=== PATIENT | male | born 1935 | race Caucasian/White ===

== ENCOUNTER 2020-07-22 08:48 | Emergency (ER) | payer MEDICARE ==
[~2020-07-22] VITALS: Ht 172.7 cm; Wt 100.7 kg
[~2020-07-22 08:48] MED LIST: ALPR.25 PO; APIDRA; ASPI325EC; ASPI500; ATEN50; ESOM20 PO; FOSI10; FOSI10 PO; HYDCHL25 PO; HYDCHL50; INSU7030P; INSUL100I; INSULANI; INSULANI SC; LANS30EC; LEVSOD88 PO; LOSHYD; METF500; METF850; METF850 PO; MULVITMINF; NIFE30ER PO; OSTEO BI FLEX; OSTEO BIFLEX; POTCHL20ER; PRAV20; PRAV20 PO; PROVACHOL; RABE20; SPIR25 PO; VALD20; WARF4 PO; WARF5 PO; [UNRECOGNIZED DRUG - OTHER]
[2020-07-22] MEDS ORDERED: HUMALOG100 UNIT/1 (09:16)
[2020-07-22] MEDS ORDERED: PRAV20 PO (09:18)
[2020-07-22] MEDS ORDERED: XARELTO20 MG PO (09:18)
[2020-07-22] MEDS ORDERED: LISI20 PO (09:18)
[2020-07-22] MEDS ORDERED: SPIR25 PO (09:18)
[2020-07-22] MEDS ORDERED: FURO20 PO (09:19)
[2020-07-22] MEDS ORDERED: POTA10T PO (09:19)
[2020-07-22 09:55] LABS: BASOPHILS ABSOLUTE AUTO 0.02 K/mm3 (0.00-0.23); BASOPHILS PERCENT AUTO 0 % (0-2); EOSINOPHILS ABSOLUTE AUTO 0.03 K/mm3 (0.00-0.68); EOSINOPHILS PERCENT AUTO 1 % (0-6); Hematocrit 38.8 % (37.0-53.0); Hemoglobin 12.7 g/dL (13.5-17.5); IMMATURE GRAN ABSOLUTE AUTO 0.03 K/mm3 (0.00-0.10); IMMATURE GRAN PERCENT AUTO 1 % (0-1); LYMPHOCYTES PERCENT AUTO 27 % (21-46); MONOCYTES ABSOLUTE AUTO 0.68 K/mm3 (0.16-1.47); MONOCYTES PERCENT AUTO 15 % (4-13); Mean Corpuscular HGB Conc 32.7 g/dL (31.5-36.5); Mean Corpuscular Volume 101 fL (80-100); Mean Platelet Volume 9.5 fL (9.1-12.4); NEUTROPHILS PERCENT AUTO 56 % (41-73); Platelet Count 126 K/mm3 (150-400); RDW Coefficient Variation 12.9 % (11.7-14.2); RDW Standard Deviation 47.8 fL (35.1-46.3); Red Blood Cell Count 3.85 M/mm3 (4.30-5.90); White Blood Cell Count 4.46 K/mm3 (4.00-11.30)
[2020-07-22 10:11] LABS: Alanine Aminotransfer (ALT/SGP 26 U/L (12-78); Albumin, Blood 3.3 g/dL (3.4-5.0); Albumin/Globulin Ratio 0.8 (0.8-1.8); Alk Phos 49 U/L (50-136); Anion Gap 9 mmol/L (6-16); Aspartate Aminotrans (AST/SGOT 22 U/L (12-37); Bilirubin, Total 0.2 mg/dL (0.1-1.0); Blood Urea Nitrogen 32 mg/dL (8-24); Bun/Creatinine Ratio 26.2 (12.0-20.0); CO2, Blood 23 mmol/L (21-32); Calcium, Blood 8.3 mg/dL (8.5-10.1); Chloride, Blood 102 mmol/L (98-108); Creatinine, Blood 1.22 mg/dL (0.60-1.20); Globulin, Blood 3.9 g/dL (2.2-4.0); Glomerular Filtration Rate >60 (60-); Glucose, Blood 178 mg/dL (70-99); Potassium, Blood 4.5 mmol/L (3.5-5.5); Sodium, Blood 134 mmol/L (136-145); Total Protein, Blood 7.2 g/dL (6.4-8.2); Troponin I <0.015 ng/mL (0.000-0.040)
[2021-01-23] MEDS ORDERED: EUTHYROX125 MCG PO (13:12)
[2021-01-23] MEDS ORDERED: GLUCOPHAGE1000 M1 PO (13:13)
[2021-01-23] MEDS ORDERED: MAGCHL64ER PO (13:13)
== END 2020-07-22 14:00 | disposition home or self-care (01) ==
LOC: ER 08:48
PROVIDERS: Emergency Medicine
DX: U07.1 COVID-19 (principal); R53.1 Weakness; R19.7 Diarrhea, unspecified; E11.9 Type 2 diabetes mellitus without complications; I10 Essential (primary) hypertension; E78.5 Hyperlipidemia, unspecified; I25.10 Atherosclerotic heart disease of native coronary artery without angina pectoris; Z87.891 Personal history of nicotine dependence; Z79.4 Long term (current) use of insulin; Z79.899 Other long term (current) drug therapy; Z79.01 Long term (current) use of anticoagulants; Z95.0 Presence of cardiac pacemaker
CPT/HCPCS: 36415; 71045; 80053; 83880; 84484; 85025; 93005; 93010; 94640; 96365; 99285-25; A9270; J7030; J7050

== ENCOUNTER 2021-01-24 06:10 | Day surgery (SDC) | payer MEDICARE ==
[~2021-01-24] VITALS: Ht 172.7 cm; Wt 99.0 kg
[~2021-01-24 06:10] MED LIST changes: +EUTHYROX125 MCG PO; +FURO20 PO; +GLUCOPHAGE1000 M1 PO; +HUMALOG100 UNIT/1; +LISI20 PO; +MAGCHL64ER PO; +POTA10T PO; +XARELTO20 MG PO
--- NOTE | 2021-01-24 08:35 | NUR ---
PT BROUGHT BACK TO RECOVERY ROOM VIA RECLINER, LEFT SIDED PACEMAKER CHANGE OUT COMPLETED. TEGADERM AND DERMABOND IN PLACE OVER INCISION. NO BLEEDING OR OOZING NOTED. PT AOX4. TOLERATES PO FLUIDS WITH NO DIFFICULTIES. DENIES PAIN. VSS. CALL LIGHT IN REACH.
--- NOTE | 2021-01-24 09:02 | NUR ---
PT UP TO RESTROOM, SLOW STEADY GAIT, UNMEASURED VOID. PT PROVIDED WITH MORE JUICE PER REQUEST. NO DISTRESS NOTED. UPDATED ON DISCHARGE STATUS. WILL CONTINUE TO MONITOR.
--- NOTE | 2021-01-24 10:28 | NUR ---
ICE PACK PREVIOUSLY ON LEFT SIDE CHEST ORDERED, PT RECLINING BACK IN CHAIR. VERBALIZED UNDERSTANDING OF D/C INSTRUCTIONS. PAPERWORK PROVIDED IN FOLDER. IV REMOVED WITH CATH INTACT, PRESSURE DRESSING APPLIED. STEADY GAIT, PT GETS DRESSED WITH NO NEEDED ASSISTANCE. PACEMAKER INCISION DRESSING C/D/I. TAKEN OUT TO PRIVATE VEHICLE VIA W/C. RIDE ARRIVES TO DRIVE HIM HOME. NADN AT TIME OF DISPO. ENCOURAGED FOLLOW UP SCHEDULED.
== END 2021-01-24 10:30 | disposition home or self-care (01) ==
LOC: MHTC 06:10
DX: Z45.010 Encounter for checking and testing of cardiac pacemaker pulse generator [battery] (principal); I48.19 Other persistent atrial fibrillation; I49.5 Sick sinus syndrome; G47.33 Obstructive sleep apnea (adult) (pediatric); E78.00 Pure hypercholesterolemia, unspecified; I10 Essential (primary) hypertension; I25.10 Atherosclerotic heart disease of native coronary artery without angina pectoris; E03.9 Hypothyroidism, unspecified; E11.9 Type 2 diabetes mellitus without complications; Z85.51 Personal history of malignant neoplasm of bladder; Z87.891 Personal history of nicotine dependence; Z88.1 Allergy status to other antibiotic agents; Z88.0 Allergy status to penicillin; Z88.8 Allergy status to other drugs, medicaments and biological substances; Z95.5 Presence of coronary angioplasty implant and graft; Z79.01 Long term (current) use of anticoagulants; Z79.4 Long term (current) use of insulin
CPT/HCPCS: 33227; 93005; 93010; 99152; 99153; C1786; J1580; J1644; J2250; J3010; J7030; J7040

== ENCOUNTER → 2021-11-27 | Outpatient (CLI) | payer MEDICARE | LOC: LAB SHORT 13:57 → LAB 13:57 | DX: L08.9 Local infection of the skin and subcutaneous tissue, unspecified (principal); D48.5 Neoplasm of uncertain behavior of skin; L81.4 Other melanin hyperpigmentation; L57.8 Other skin changes due to chronic exposure to nonionizing radiation | CPT/HCPCS: 87070; 87077; 87186; 87205 ==

== ENCOUNTER 2022-01-01 18:46 | Emergency (ER) | payer MEDICARE ==
[~2022-01-01] VITALS: Ht 172.7 cm; Wt 99.8 kg
[2022-01-01 19:34] LABS: BASOPHILS ABSOLUTE AUTO 0.03 K/mm3 (0.00-0.23); BASOPHILS PERCENT AUTO 0 % (0-2); EOSINOPHILS ABSOLUTE AUTO 0.27 K/mm3 (0.00-0.68); EOSINOPHILS PERCENT AUTO 3 % (0-6); Hematocrit 37.3 % (37.0-53.0); Hemoglobin 12.2 g/dL (13.5-17.5); IMMATURE GRAN ABSOLUTE AUTO 0.06 K/mm3 (0.00-0.10); IMMATURE GRAN PERCENT AUTO 1 % (0-1); LYMPHOCYTES PERCENT AUTO 19 % (21-46); MONOCYTES ABSOLUTE AUTO 0.75 K/mm3 (0.16-1.47); MONOCYTES PERCENT AUTO 9 % (4-13); Mean Corpuscular HGB 32.7 pg (26.0-34.0); Mean Corpuscular HGB Conc 32.7 g/dL (31.5-36.5); Mean Corpuscular Volume 100 fL (80-100); Mean Platelet Volume 9.1 fL (9.1-12.4); NEUTROPHILS ABSOLUTE AUTO 6.02 K/mm3 (1.96-9.15); NEUTROPHILS PERCENT AUTO 68 % (41-73); Platelet Count 192 K/mm3 (150-400); RDW Coefficient Variation 12.4 % (11.7-14.2); RDW Standard Deviation 45.7 fL (35.1-46.3); Red Blood Cell Count 3.73 M/mm3 (4.30-5.90); White Blood Cell Count 8.83 K/mm3 (4.00-11.30)
[2022-01-01 19:50] LABS: Albumin, Blood 3.8 g/dL (3.4-5.0); Albumin/Globulin Ratio 1.1 (0.8-1.8); Bilirubin, Total 0.4 mg/dL (0.1-1.0); Bun/Creatinine Ratio 21.4 (12.0-20.0); Calcium, Blood 9.3 mg/dL (8.5-10.1); Creatinine, Blood 1.31 mg/dL (0.60-1.20); Globulin, Blood 3.6 g/dL (2.2-4.0); Magnesium, Blood 1.6 mg/dL (1.6-2.4); Potassium, Blood 4.4 mmol/L (3.5-5.5); Total Protein, Blood 7.4 g/dL (6.4-8.2)
== END 2022-01-01 20:54 | disposition home or self-care (01) ==
LOC: ER 18:46
PROVIDERS: Emergency Medicine
DX: R25.2 Cramp and spasm (principal); E11.9 Type 2 diabetes mellitus without complications; I10 Essential (primary) hypertension; I25.10 Atherosclerotic heart disease of native coronary artery without angina pectoris; Z88.0 Allergy status to penicillin; Z88.1 Allergy status to other antibiotic agents; Z88.8 Allergy status to other drugs, medicaments and biological substances; Z87.891 Personal history of nicotine dependence; Z79.4 Long term (current) use of insulin; Z79.01 Long term (current) use of anticoagulants; Z79.899 Other long term (current) drug therapy
CPT/HCPCS: 80053; 83735; 85025; 93005; 93010

== ENCOUNTER → 2022-11-18 | Outpatient (CLI) | payer MEDICARE | END | disposition home or self-care (01) | LOC: LAB 11:30 → LAB SHORT 11:30 | DX: D48.5 Neoplasm of uncertain behavior of skin (principal); L57.0 Actinic keratosis; L82.0 Inflamed seborrheic keratosis; L53.8 Other specified erythematous conditions; L08.9 Local infection of the skin and subcutaneous tissue, unspecified; L82.1 Other seborrheic keratosis; D22.5 Melanocytic nevi of trunk; D22.71 Melanocytic nevi of right lower limb, including hip; D22.72 Melanocytic nevi of left lower limb, including hip; L81.4 Other melanin hyperpigmentation; L57.8 Other skin changes due to chronic exposure to nonionizing radiation; Z71.89 Other specified counseling | CPT/HCPCS: 87070; 87205 ==

== ENCOUNTER 2024-07-01 10:15 | Day surgery (SDC) | payer MEDICARE ==
[2024-07-01] MEDS ORDERED: Magnesium Sulf 2 GM/Water 50ML 50 ML IV SCH (10:25)
[2024-07-01 13:27] VITALS: BP 134/77
[2024-07-01] MEDS ORDERED: ATOR10 PO (16:08)
[2024-07-01] MEDS ORDERED: ALEVAZOL56.7 G1 TOP (16:09)
[2024-07-01] MEDS ORDERED: B-12 COMPL1000 MCG/2 IM (16:09)
[2024-07-01] MEDS ORDERED: GVOKE HYPO0.5 MG/0.2 SC (16:10)
[2024-07-01] MEDS ORDERED: MAGNESIUM OXID500 MG PO (16:10)
[2024-07-01] MEDS ORDERED: OMEP20ER PO (16:11)
[2024-07-01] MEDS ORDERED: RYBELSUS7 MG PO (16:11)
[2024-07-01] MEDS ORDERED: THERA-D2000 UNIT PO (16:11)
--- NOTE | 2024-07-01 17:54 | NUR ---
POST INFUSION LABS DRAWN AT 1740.
[2024-07-01 18:10] LABS: Albumin, Blood 3.1 g/dL (3.4-5.0); Anion Gap 11 mmol/L (3-11); Blood Urea Nitrogen 30 mg/dL (8-24); CO2, Blood 23 mmol/L (21-32); Chloride, Blood 109 mmol/L (98-108); Creatinine, Blood 1.11 mg/dL (0.60-1.20); Glomerular Filtration Rate 64 (60-); Glucose, Blood 157 mg/dL (70-99); Phosphorus, Blood 2.8 mg/dL (2.5-4.9); Potassium, Blood 4.6 mmol/L (3.5-5.5); Sodium, Blood 138 mmol/L (136-145)
== END 2024-07-01 17:45 | disposition home or self-care (01) ==
LOC: ATC 10:15
PROVIDERS: Family Medicine
DX: E83.42 Hypomagnesemia (principal); E11.9 Type 2 diabetes mellitus without complications; I25.10 Atherosclerotic heart disease of native coronary artery without angina pectoris; I48.20 Chronic atrial fibrillation, unspecified; I11.0 Hypertensive heart disease with heart failure; I50.32 Chronic diastolic (congestive) heart failure; E78.2 Mixed hyperlipidemia; K21.9 Gastro-esophageal reflux disease without esophagitis; E03.9 Hypothyroidism, unspecified; G47.33 Obstructive sleep apnea (adult) (pediatric); Z87.891 Personal history of nicotine dependence; Z79.4 Long term (current) use of insulin; Z79.84 Long term (current) use of oral hypoglycemic drugs; Z79.890 Hormone replacement therapy; Z79.01 Long term (current) use of anticoagulants; Z79.899 Other long term (current) drug therapy; Z88.0 Allergy status to penicillin; Z88.1 Allergy status to other antibiotic agents; Z88.8 Allergy status to other drugs, medicaments and biological substances; Z95.0 Presence of cardiac pacemaker
CPT/HCPCS: 80069; 83735; 96365; 96366; J3475

== ENCOUNTER 2024-08-06 02:53 | Day surgery (SDC) | payer MEDICARE ==
[~2024-08-06 02:53] MED LIST changes: +ALEVAZOL56.7 G1 TOP; +ATOR10 PO; +B-12 COMPL1000 MCG/2 IM; +GVOKE HYPO0.5 MG/0.2 SC; +MAGNESIUM OXID500 MG PO; +OMEP20ER PO; +RYBELSUS7 MG PO; +THERA-D2000 UNIT PO
[2024-08-06] MEDS ORDERED: Magnesium Sulf 2 GM/Water 50ML 50 ML IV SCH (06:00)
[2024-08-06 07:34] VITALS: BP 136/73
[2024-08-06 13:14] LABS: Albumin, Blood 3.5 g/dL (3.4-5.0); Anion Gap 12 mmol/L (3-11); Blood Urea Nitrogen 28 mg/dL (8-24); Bun/Creatinine Ratio 25.2 (12.0-20.0); CO2, Blood 22 mmol/L (21-32); Calcium, Blood 9.1 mg/dL (8.5-10.1); Chloride, Blood 110 mmol/L (98-108); Creatinine, Blood 1.11 mg/dL (0.60-1.20); Glomerular Filtration Rate 64 (60-); Glucose, Blood 140 mg/dL (70-99); Magnesium, Blood 2.2 mg/dL (1.6-2.4); Phosphorus, Blood 3.8 mg/dL (2.5-4.9); Potassium, Blood 5.8 mmol/L (3.5-5.5); Sodium, Blood 138 mmol/L (136-145)
== END 2024-08-06 12:10 | disposition home or self-care (01) ==
LOC: ATC 02:53
PROVIDERS: Family Medicine
DX: E83.42 Hypomagnesemia (principal); E11.9 Type 2 diabetes mellitus without complications; I25.10 Atherosclerotic heart disease of native coronary artery without angina pectoris; I11.0 Hypertensive heart disease with heart failure; I50.32 Chronic diastolic (congestive) heart failure; E78.2 Mixed hyperlipidemia; E03.9 Hypothyroidism, unspecified; I48.91 Unspecified atrial fibrillation; G47.33 Obstructive sleep apnea (adult) (pediatric); K21.9 Gastro-esophageal reflux disease without esophagitis; Z87.891 Personal history of nicotine dependence; Z79.890 Hormone replacement therapy; Z79.4 Long term (current) use of insulin; Z79.01 Long term (current) use of anticoagulants; Z79.899 Other long term (current) drug therapy; Z88.0 Allergy status to penicillin; Z88.1 Allergy status to other antibiotic agents; Z88.8 Allergy status to other drugs, medicaments and biological substances
CPT/HCPCS: 80069; 83735; 96365; 96366; J3475

== ENCOUNTER 2024-11-15 23:43 | Emergency (ER) | payer MEDICARE ==
[~2024-11-15] VITALS: Ht 172.7 cm; Wt 83.9 kg
[2024-11-16 02:05] LABS: Source, Urine Clean Catch
[2024-11-16 02:10] LABS: Bilirubin, Urine Neg (Neg); Blood, Urine 2+ (Neg); Glucose Qualitative, Urine Neg (Neg); Ketones, Urine Neg (Neg); Leukocyte Esterase, Urine Neg (Neg); Nitrite, Urine Neg (Neg); Protein, Urine 1+ (Neg); Specific Gravity, Urine 1.015 (1.003-1.022); Urobilinogen, Urine NORM (Normal)
[2024-11-16 02:10] LABS: Albumin, Blood 3.6 g/dL (3.4-5.0); Bilirubin, Total 0.5 mg/dL (0.1-1.0); Bun/Creatinine Ratio 22.2 (12.0-20.0); Calcium, Blood 8.9 mg/dL (8.5-10.1); Creatinine, Blood 1.26 mg/dL (0.60-1.20); Globulin, Blood 3.6 g/dL (2.2-4.0); Potassium, Blood 4.5 mmol/L (3.5-5.5); Total Protein, Blood 7.2 g/dL (6.4-8.2)
[2024-11-16 02:12] LABS: Appearance, Urine Clear (Clear); Color, Urine Yellow (P-Yellow)
[2024-11-16 02:14] LABS: BASOPHILS ABSOLUTE AUTO 0.04 K/mm3 (0.00-0.23); BASOPHILS PERCENT AUTO 0 % (0-2); EOSINOPHILS ABSOLUTE AUTO 0.21 K/mm3 (0.00-0.68); EOSINOPHILS PERCENT AUTO 2 % (0-6); Hematocrit 34.2 % (37.0-53.0); Hemoglobin 11.2 g/dL (13.5-17.5); IMMATURE GRAN ABSOLUTE AUTO 0.03 K/mm3 (0.00-0.10); IMMATURE GRAN PERCENT AUTO 0 % (0-1); LYMPHOCYTES ABSOLUTE AUTO 1.72 K/mm3 (0.84-5.20); LYMPHOCYTES PERCENT AUTO 19 % (21-46); MONOCYTES ABSOLUTE AUTO 0.79 K/mm3 (0.16-1.47); MONOCYTES PERCENT AUTO 9 % (4-13); Mean Corpuscular HGB 33.8 pg (26.0-34.0); Mean Corpuscular HGB Conc 32.7 g/dL (31.5-36.5); Mean Corpuscular Volume 103 fL (80-100); Mean Platelet Volume 9.3 fL (9.1-12.4); NEUTROPHILS ABSOLUTE AUTO 6.48 K/mm3 (1.96-9.15); NEUTROPHILS PERCENT AUTO 70 % (41-73); Platelet Count 167 K/mm3 (150-400); RDW Coefficient Variation 12.1 % (11.7-14.2); RDW Standard Deviation 45.8 fL (35.1-46.3); Red Blood Cell Count 3.31 M/mm3 (4.30-5.90); White Blood Cell Count 9.27 K/mm3 (4.00-11.30)
[2024-11-16 02:16] LABS: Red Blood Cells, Urine 0-2 /hpf (0-2); White Blood Cells, Urine Not Seen /hpf (0-5)
[2024-11-16 02:17] LABS: Bacteria Rare /hpf; Squamous Epithelial Cells Few /hpf (Few)
[2024-11-16 04:30] VITALS: BP 103/56
== END 2024-11-16 04:35 | disposition home or self-care (01) ==
LOC: ER 23:43
PROVIDERS: Emergency Medicine
DX: R10.31 Right lower quadrant pain (principal); R10.32 Left lower quadrant pain; K85.90 Acute pancreatitis without necrosis or infection, unspecified; K52.9 Noninfective gastroenteritis and colitis, unspecified; I77.819 Aortic ectasia, unspecified site; K46.9 Unspecified abdominal hernia without obstruction or gangrene; E11.9 Type 2 diabetes mellitus without complications; I10 Essential (primary) hypertension; E78.5 Hyperlipidemia, unspecified; Z88.0 Allergy status to penicillin; Z88.1 Allergy status to other antibiotic agents; Z88.8 Allergy status to other drugs, medicaments and biological substances; Z79.4 Long term (current) use of insulin; Z79.890 Hormone replacement therapy; Z79.899 Other long term (current) drug therapy; Z95.0 Presence of cardiac pacemaker; Z87.891 Personal history of nicotine dependence
CPT/HCPCS: 74177; 80053; 81001; 83690; 85025; 99284-25; Q9967

== ENCOUNTER → 2024-11-15 | Outpatient (CLI) | payer MEDICARE ==
[2024-11-16 12:35] LABS: Stool Occult Blood Guaiac 1 Neg (Neg)
== END ==
LOC: LAB SHORT 12:15 → LAB 12:15
PROVIDERS: Family Medicine
DX: R07.89 Other chest pain (principal); R23.1 Pallor
CPT/HCPCS: 82270; 84484

== ENCOUNTER 2025-03-18 03:47 | Day surgery (SDC) | payer MEDICARE ==
[2025-03-18] MEDS ORDERED: Mag Sulfate 1 GM/D5% 100ML 100 ML IV SCH (06:00)
[2025-03-18 07:36] VITALS: BP 134/62
[2025-03-18 13:16] LABS: Albumin, Blood 3.4 g/dL (3.4-5.0); Anion Gap 9 mmol/L (3-11); Blood Urea Nitrogen 28 mg/dL (8-24); CO2, Blood 25 mmol/L (21-32); Calcium, Blood 8.8 mg/dL (8.5-10.1); Chloride, Blood 106 mmol/L (98-108); Creatinine, Blood 1.26 mg/dL (0.60-1.20); Glucose, Blood 131 mg/dL (70-99); Magnesium, Blood 2.0 mg/dL (1.6-2.4); Phosphorus, Blood 3.9 mg/dL (2.5-4.9); Potassium, Blood 5.1 mmol/L (3.5-5.5); Sodium, Blood 135 mmol/L (136-145)
== END 2025-03-18 12:20 | disposition home or self-care (01) ==
LOC: ATC 03:47
PROVIDERS: Family Medicine
DX: E83.42 Hypomagnesemia (principal); E11.9 Type 2 diabetes mellitus without complications; E03.9 Hypothyroidism, unspecified; I10 Essential (primary) hypertension; I25.10 Atherosclerotic heart disease of native coronary artery without angina pectoris; I48.91 Unspecified atrial fibrillation; K21.9 Gastro-esophageal reflux disease without esophagitis; Z88.1 Allergy status to other antibiotic agents; Z88.0 Allergy status to penicillin; Z88.8 Allergy status to other drugs, medicaments and biological substances; Z79.899 Other long term (current) drug therapy; Z79.4 Long term (current) use of insulin; Z87.891 Personal history of nicotine dependence; Z95.0 Presence of cardiac pacemaker
CPT/HCPCS: 80069; 83735; 96365; 96366; J3475

== ENCOUNTER → 2025-03-22 | Outpatient (CLI) | payer MEDICARE | LOC: LAB SHORT 16:55 → LAB 16:55 | DX: R30.0 Dysuria (principal); N39.0 Urinary tract infection, site not specified | CPT/HCPCS: 87077; 87086; 87186 ==

== ENCOUNTER 2025-06-16 02:15 | Day surgery (SDC) | payer MEDICARE ==
[~2025-06-16 02:15] MED LIST changes: +Mag Sulfate 1 GM/D5% 100ML 100 ML IV SCH
[2025-06-16 07:31] VITALS: BP 109/75
== END 2025-06-16 08:36 | disposition home or self-care (01) ==
LOC: ATC 02:15
DX: E83.42 Hypomagnesemia (principal); I48.20 Chronic atrial fibrillation, unspecified; E03.9 Hypothyroidism, unspecified; I25.10 Atherosclerotic heart disease of native coronary artery without angina pectoris; G47.33 Obstructive sleep apnea (adult) (pediatric); I11.0 Hypertensive heart disease with heart failure; I50.32 Chronic diastolic (congestive) heart failure; E78.2 Mixed hyperlipidemia; K21.9 Gastro-esophageal reflux disease without esophagitis; G89.4 Chronic pain syndrome; E11.21 Type 2 diabetes mellitus with diabetic nephropathy; Z87.891 Personal history of nicotine dependence; Z79.01 Long term (current) use of anticoagulants; Z79.4 Long term (current) use of insulin; Z79.84 Long term (current) use of oral hypoglycemic drugs; Z79.890 Hormone replacement therapy; Z79.899 Other long term (current) drug therapy; Z88.0 Allergy status to penicillin; Z88.1 Allergy status to other antibiotic agents; Z88.8 Allergy status to other drugs, medicaments and biological substances; Z95.0 Presence of cardiac pacemaker
CPT/HCPCS: 96365; 99211; J3475

== ENCOUNTER → 2025-06-21 | Outpatient (CLI) | payer MEDICARE ==
[~2025-06-21] MED LIST changes: -Mag Sulfate 1 GM/D5% 100ML 100 ML IV SCH
[2025-06-22 13:02] LABS: Stool Occult Bld Immuno 1 Positive (NEGATIVE)
== END ==
LOC: LAB SHORT 14:30 → LAB 14:30
PROVIDERS: Family Medicine
DX: D64.9 Anemia, unspecified (principal)
CPT/HCPCS: 82274